=== PATIENT | male | born 2000 | race Two or more races ===

== ENCOUNTER 2021-06-13 01:00 | Emergency (ER) | payer MEDICAID, OTHER ==
[~2021-06-13] VITALS: Ht 177.8 cm; Wt 72.6 kg
--- NOTE | 2021-06-13 01:22 | NUR ---
PT BIBRA C/O OD ON FENTANYL. PT AAOX4 BREATHING EVENLY AND UNLABORED. PT GIVEN 2MG IV OF NARCAN FIELD ADVISOR. PT ATTACHED TO MONITOR AND POX. PT DENIES SI. AT BEDSIDE. PT GIVEN BLANKET AND CALL LIGHT WITHIN REACH
--- NOTE | 2021-06-13 01:50 | NUR ---
LAB AT BEDSIDE
[2021-06-13 02:02] LABS: BASOPHILS % (AUTO) 0.2 % (0.0-2.0); EOSINOPHILS % (AUTO) 0.1 % (0.0-6.0); HEMATOCRIT 40 % (39-51); HEMOGLOBIN 13.2 g/dL (13.5-17.5); LYMPHOCYTES # (AUTO) 0.5 K/uL (0.8-4.8); LYMPHOCYTES % (AUTO) 3.9 % (20.0-44.0); MEAN CORPUSCULAR HGB CONC 33 g/dl (31.0-36.0); MEAN CORPUSCULAR VOLUME 90 fL (80-96); MONOCYTES # (AUTO) 0.7 K/uL (0.1-1.30); MONOCYTES % (AUTO) 5.8 % (2.0-12.0); NEUTROPHILS # (AUTO) 11.5 K/uL (1.8-8.9); PLATELET COUNT (AUTO) 361 K/uL (150-450); RED BLOOD CELL COUNT(AUTO) 4.49 MIL/uL (4.5-6.0); WHITE BLOOD COUNT (AUTO) 12.8 K/uL (4.3-11.0)
[2021-06-13 02:17] LABS: ALANINE AMINOTRANSFERASE 32 U/L (12-78); ALBUMIN 3.2 g/dL (3.4-5.0); ALKALINE PHOSPHATASE 75 U/L (46-116); ASPARTATE AMINOTRANSFERASE 30 U/L (15-37); BILIRUBIN,DIRECT 0.2 mg/dL (0.0-0.2); BILIRUBIN,TOTAL 0.4 mg/dL (0.2-1.0); CALCIUM, SERUM 8.4 mg/dL (8.5-10.1); CARBON DIOXIDE 31 mmol/L (21-32); CHLORIDE 99 mmol/L (98-107); CREATININE 1.3 mg/dL (0.6-1.3); GLUCOSE 87 mg/dL (74-106); POTASSIUM 4.1 mmol/L (3.5-5.1); SODIUM SERUM 137 mmol/L (136-145); TOTAL PROTEIN, SERUM 7.4 g/dL (6.4-8.2); UREA NITROGEN, BLOOD 19 mg/dL (7-18)
[2021-06-13 02:19] LABS: ACETAMINOPHEN 0 ug/ml (10-30); ALCOHOL, BLOOD < 3 mg/dL (0-0)
--- NOTE | 2021-06-13 04:58 | NUR ---
URINE COLLECTED AND SENT TO LAB
--- NOTE | 2021-06-13 04:59 | NUR ---
VERBAL ORDER 800MG MOTRIN PO
--- NOTE | 2021-06-13 04:59 | NUR ---
Rocio nunez in [facility] - 06/13/21 at 0459 by RACHEL VERBAL ORDER 800MG NIGELRIN
[2021-06-13] MEDS ORDERED: IBUPROFEN 400 MG TABLET ONE (05:00)
[2021-06-13] MEDS ORDERED: IBUPROFEN 400 MG TABLET PO ONE (05:00)
[2021-06-13 05:30] LABS: BILIRUBIN,URINE NEGATIVE (NEGATIVE); COLOR,URINE YELLOW (YELLOW); LEUKOCYTE ESTERASE ,URINE NEGATIVE (NEGATIVE); NITRITE, URINE NEGATIVE (NEGATIVE); PROTEIN,URINE 30 mg/dl (NEGATIVE); UGLUCOSE 100 MG/DL mg/dL (NEGATIVE); UROBILINOGEN,URINE 0.2 EU/dL (0.2)
--- NOTE | 2021-06-13 06:22 | NUR ---
PT SLEEPING, ATTACHED TO MONITOR AND POX.
[2021-06-13 06:56] VITALS: BP 126/77
--- NOTE | 2021-06-13 06:56 | NUR ---
Patient discharged to home in stable condition. Written and verbal after care instructions given. Patient verbalizes understanding of instruction.
[2021-06-13] MEDS ORDERED: NALO4SPR NS (07:25)
[2021-06-13 14:46] LABS: BACTERIA,URINE MOD /HPF (None Seen); SQUAMOUS EPITHELIAL CELL,UR FEW /HPF (None Seen)
[2021-06-13 14:47] LABS: URINE AMORPHOUS URATE Moderate /HPF (None Seen)
== END 2021-06-13 06:57 | disposition home or self-care (01) ==
LOC: ER 01:02
DX: T40.411A Poisoning by fentanyl or fentanyl analogs, accidental (unintentional), initial encounter (principal); R94.31 Abnormal electrocardiogram [ECG] [EKG]; F17.200 Nicotine dependence, unspecified, uncomplicated; Z59.00 Homelessness unspecified; Y92.89 Other specified places as the place of occurrence of the external cause
CPT/HCPCS: 36415; 80048-TC; 80076-TC; 81001; 85025-TC; G0480